=== PATIENT | female | born 1940 | race Caucasian/White ===

== ENCOUNTER 2016-10-01 13:27 | Outpatient (CLI) | payer OTHER, MEDICARE ==
[~2016-10-01 13:27] MED LIST: ACETAMINOPHEN500 MG PO; AMLODIPINE BESY10 MG PO; CALCIUM 1000 + D PO; CYCLOBENZAPRINE5 MG PO; DEMEROL50 MG PO; LEVOTHYROXINE100 MCG PO; LOSARTAN POTAS100 MG PO; NORCO1 TA1 PO; OMEPRAZOLE20 M1 PO; ORENCIA250 MG IM; PLAQUENIL200 M1 PO; PREDNISONE5 MG PO; PROPRANOLOL HC160 MG PO; TRAMADOL HCL50 MG PO; VITAMIN B-1000 MCG/M SC; VITAMIN D-31000 UNIT PO; VOLTAREN1 %; [UNRECOGNIZED DRUG - OTHER] PO
--- NOTE | 2016-10-01 15:18 | DIAGNOSTIC IMAGING REPORT ---
PROCEDURE: MG BILATERAL SCREENING W/CAD INDICATION: Screening, personal history of right breast cancer with radiation treatment following lumpectomy. TECHNIQUE: Standard CC and MLO views bilaterally. Computer aided detection was used. COMPARISON: 09/10/2015, 05/18/2011, 11/27/2008 FINDINGS: Mildly dense patchy fibroglandular tissue is present bilaterally. There is now focal skin thickening over the upper outer right breast, moderate right breast volume loss, and architectural distortion on the CC view. Interval removal of right breast microcalcifications. No developing densities, areas of architectural distortion, or suspicious microcalcifications of the left breast. IMPRESSION: 1. Interval lumpectomy and treatment changes of radiation in the right breast. 2. Stable left breast mammograms and no radiographic evidence of malignancy. RESULT CODE: 2- Benign findings. A. A negative report should not delay biopsy if a dominant or clinically suspicious mass is present. 10-15% of cancers are not identified by x-ray. B. A negative report may reinforce clinical impression. C. Adenosis and dense breasts may obscure an underlying neoplasm. D. False positive reports average 6-10%. E.. A yearly screening mammogram is recommended. A reminder letter will be scheduled.
== END 2016-10-01 23:00 ==
LOC: MAM SRH 13:27
DX: Z12.31 Encounter for screening mammogram for malignant neoplasm of breast (principal); Z85.3 Personal history of malignant neoplasm of breast